=== PATIENT | male | born 1970 | race Caucasian/White ===

== ENCOUNTER 2017-07-17 17:29 | Emergency (ER) | payer BC ==
[~2017-07-17] VITALS: Ht 177.8 cm; Wt 108.0 kg
[2017-07-17 17:39] VITALS: TEMP 36.6; Ht 177.8 cm; Wt 108.0 kg
--- NOTE | 2017-07-17 19:01 | DIAGNOSTIC IMAGING REPORT ---
(TESTICULAR) SCROTUM-CONT CLINICAL HISTORY: Right testicular pain COMPARISON STUDY: No previous studies for comparison. FINDINGS: The right testis measures 37 x 25 x 27 mm. The left testis measures 41 x 22 x 29 mm. There is no evidence of testicular torsion. No intratesticular masses are visualized. Portions of the right epididymis are enlarged, heterogeneous, and hypervascular. There is adjacent right scrotal thickening and hyperemia. The findings are likely secondary to epididymitis with scrotal wall inflammation. Note is made of a dancing sperm sign. While this was originally described in filarial infection, it has also been described with megasperm in an obstructed epididymis IMPRESSION: 1. No evidence of testicular torsion 2. No evidence of intratesticular mass 3. Focal enlargement heterogeneity and hypervascularity of the right epididymis with adjacent right scrotal wall thickening and hyperemia. The findings are likely secondary to epididymitis with adjacent scrotal wall inflammation. Clinical follow-up is advocated 4. Dancing sperm sign. While originally described in filarial infection, this sign was later described in epididymal inflammation obstruction. Please correlate with any travel history. Electronically signed by: John Maloney M.D. 07/17/2017 7:00 PM Dictated Date/Time: 07/17/2017 6:51 PM
[2017-07-17] MEDS ORDERED: CIPROFLOXACIN 500 MG TAB PO STA (19:22)
[2017-07-17] MEDS ORDERED: CIPR-255 PO (19:29)
--- NOTE | 2017-07-17 19:37 | EMERGENCY ROOM VISIT NOTE ---
History Report prepared by Mustapha: Shawna Lyon Under the Supervision of: Dr. Ian Polo M.D. First contact with patient: 18:07 Chief Complaint: TESTICULAR PAIN Stated Complaint: PAIN AND SWELLING IN GENITALS Nursing Triage Summary: Right testicle red and swollen and painful. Pain for 1 week History of Present Illness The patient is a 47 year old male who presents to the Emergency Room with complaints of worsening right testicle pain starting 1 week ago. He is now having some difficulty sitting and sleeping because the pain worsens when he is in certain positions. He has not been taking anything for the pain. He denies any urinary symptoms. He has had a vasectomy. He denies any risk for STDs. 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 Source of History: patient Onset: 1 week ago Position: other (right testicle) Quality: other (pain) Timing: worsening Modifying Factors (Worsening): other (certain positions) Associated Symptoms: No urinary symptoms Review of Systems See HPI for pertinent positives & negatives. A total of 10 systems reviewed and were otherwise negative. Past Medical & Surgical Surgical Problems: (1) S/P vasectomy Family History No pertinent family history stated. Social History Smoking Status: Never Smoker Occupation Status: employed Current/Historical Medications Scheduled Ciprofloxacin Hcl (Cipro), 1 TAB PO BID Physical Exam Vital Signs Date Time Temp Pulse Resp B/P (MAP) Pulse Ox O2 Delivery O2 Flow Rate FiO2 07/17/17 19:38 59 18 134/88 95 07/17/17 19:05 64 18 131/88 96 Room Air 07/17/17 17:39 36.6 68 16 147/92 95 Room Air Physical Exam GENERAL: Awake, alert, well-appearing, in no acute distress HENT: Normocephalic, atraumatic. Oropharynx unremarkable. EYES: Normal conjunctiva. Sclera non-icteric. NECK: Supple. No nuchal rigidity. FROM. No JVD. RESPIRATORY: Clear to auscultation. CARDIAC: Regular rate, normal rhythm. Extremities warm and well perfused. Pulses equal. ABDOMEN: Soft, non-distended. No tenderness to palpation. No rebound or guarding. No masses. : Right testicle is grossly swollen. Good cremasteric reflex. MUSCULOSKELETAL: Chest examination reveals no tenderness. The back is symmetrical on inspection without obvious abnormality. There is no CVA tenderness to palpation. No joint edema. LOWER EXTREMITIES: Calves are equal size bilaterally and non-tender. No edema. No discoloration. NEURO: Normal sensorium. No sensory or motor deficits noted. SKIN: No rash or jaundice noted. Medical Decision & Procedures ER Provider Diagnostic Interpretation: Radiology results as stated below per my review and radiologist interpretation: (TESTICULAR) SCROTUM-CONT CLINICAL HISTORY: Right testicular pain COMPARISON STUDY: No previous studies for comparison. FINDINGS: The right testis measures 37 x 25 x 27 mm. The left testis measures 41 x 22 x 29 mm. There is no evidence of testicular torsion. No intratesticular masses are visualized. Portions of the right epididymis are enlarged, heterogeneous, and hypervascular. There is adjacent right scrotal thickening and hyperemia. The findings are likely secondary to epididymitis with scrotal wall inflammation. Note is made of a dancing sperm sign. While this was originally described in filarial infection, it has also been described with megasperm in an obstructed epididymis IMPRESSION: 1. No evidence of testicular torsion 2. No evidence of intratesticular mass 3. Focal enlargement heterogeneity and hypervascularity of the right epididymis with adjacent right scrotal wall thickening and hyperemia. The findings are likely secondary to epididymitis with adjacent scrotal wall inflammation. Clinical follow-up is advocated 4. Dancing sperm sign. While originally described in filarial infection, this sign was later described in epididymal inflammation obstruction. Please correlate with any travel history. Electronically signed by: John Maloney M.D. 07/17/2017 7:00 PM Dictated Date/Time: 07/17/2017 6:51 PM Laboratory Results Test 07/17/17 19:00 Urine Color YELLOW Urine Appearance CLEAR (CLEAR) Urine pH 6.5 (4.5-7.5) Urine Specific [place] 1.032 (1.000-1.030) Urine Protein NEG (NEG) Urine Glucose (UA) NEG (NEG) Urine Ketones TRACE (NEG) Urine Occult Blood NEG (NEG) Urine Nitrite NEG (NEG) Urine Bilirubin NEG (NEG) Urine Urobilinogen NEG (NEG) Urine Leukocyte Esterase NEG (NEG) Labs reviewed by ED physician. Medications Administered Medications (Trade) Dose Ordered Sig/Rea Route Start Time Stop Time Status Last Admin Dose Admin Ciprofloxacin (Cipro Tab) 500 mg NOW STAT PO 07/17/17 19:22 07/17/17 19:23 DC 07/17/17 19:29 500 MG ED Course 180: Past medical records reviewed. The patient was evaluated in room B6. A complete history and physical examination was performed. 1918: I discussed the patient's case with Dr. Oconnor [facility] [place] urology. He is in agreement with the plan. 1921: Ciprofloxacin 500 mg PO. 1922: Upon reexamination the patient is resting comfortably. I discussed results and treatment plan with the patient. He verbalizes agreement and understanding. The patient is ready for discharge. Medical Decision Differential diagnosis: Etiologies such as torsion, mass, infection, hernia, hydrocele, epididymitis, trauma, intra-abdominal process, as well as others were entertained. This is a 47-year-old male who presents emergency department complaining of right testicular swelling. The patient was sent for a testicular ultrasound which showed a dancing sperm's sign. The patient reports he has not been in [place] for some time for the dancing sperm sign. I suspect this is from his vasectomy however I did discuss the case with urology who agreed to see the patient over the next several days. The patient was started on Cipro in the emergency department and I encouraged the use of ibuprofen. Patient was in agreement with the treatment plan. Medication Reconcilliation Current Medication List: was personally reviewed by me Blood Pressure Screening Patient's blood pressure: Elevated blood pressure Blood pressure disposition: Elevated BP felt to be situational Consults Time Called: 1916 Consulting Physician: Dr. Oconnor [facility] [place] urology Returned Call: 1918 I discussed the patient's case with him. He is in agreement with the plan. Impression Primary Impression: Epididymitis Scribe Attestation The scribe's documentation has been prepared under my direction and personally reviewed by me in its entirety. I confirm that the note above accurately reflects all work, treatment, procedures, and medical decision making performed by me. Departure Information Dispostion Home / Self-Care Prescriptions Ciprofloxacin Hcl (CIPRO) 500 Mg Tab 1 TAB PO BID for 14 Days, #28 TAB Prov: Ian Polo MD 07/17/17 Referrals Mazin Lopez M.D., Christopher T. M.D. Forms HOME CARE DOCUMENTATION FORM, IMPORTANT VISIT INFORMATION, WORK / SCHOOL INSTRUCTIONS Patient Instructions Epididymitis Ramirez, Epididymitis Orchitis, [facility] Additional Instructions Follow up with DR Oconnor's office Take 600 mg Ibuprofen every 6 hours Culture results are usually available in approx 48 hours You have been examined and treated today on an emergency basis only. This is not a substitute for, or an effort to provide, complete comprehensive medical care. It is impossible to recognize and treat all injuries or illnesses in a single emergency department visit. It is therefore important that you follow up closely with Dr Lopez. Call as soon as possible for an appointment. Thank you for your time and consideration. I look forward to speaking with you again soon. Please don't hesitate to call us if you have any questions.
[2017-07-17 19:38] VITALS: BP 134/88; PULSE 59; O2SAT 95
== END 2017-07-17 19:34 | disposition home or self-care (01) ==
LOC: C.EDB 17:32
DX: N45.1 Epididymitis (principal); R03.0 Elevated blood-pressure reading, without diagnosis of hypertension; Z98.52 Vasectomy status